=== PATIENT | female | born 1970 | race Caucasian/White ===

== ENCOUNTER → 2016-05-06 | Outpatient (REF) | payer OTHER | END | disposition home or self-care (01) | LOC: M SMT 13:08 | PROVIDERS: ATTEND Nurse Practitioner Women's Health | DX: R30.0 Dysuria (principal) ==

== ENCOUNTER → 2016-05-19 | Outpatient (CLI) | payer OTHER ==
--- NOTE | 2016-05-19 12:59 | REP ---
Urinary tract sonogram: History: Frequency, bladder pain. Comparison: Pelvic sonography May 29, 2014. MRI pelvic study July 06, 2014. Findings: Scanning at the level of the urinary bladder shows no abnormality. Pre void bladder volume is calculated at 484.6 ml. Postvoid bladder residual is seen at 17.6 ml. A normal emptying ureteral jet was observed on the left, not seen on the right. Renal cortical echogenicity pattern is normal bilaterally and contours are smooth. There is no evidence of hydronephrosis, cyst, mass, or calculus in either kidney. The right kidney measures 10.9 x 5.7 x 4.1 cm. There is a 0.7 cm echogenic focus at the lower pole of the right kidney which could be a small calculus. Left renal dimensions are 11.0 x 6.4 x 4.7 cm. Impression: Question small calculus lower pole right kidney, otherwise normal urinary tract sonography. Signed by Florentino Montoya MD 05/19/2016 12:51 P
== END ==
LOC: M SMT 10:51
PROVIDERS: ATTEND Nurse Practitioner Women's Health
DX: R35.0 Frequency of micturition (principal); R39.89 Other symptoms and signs involving the genitourinary system; M54.5 Low back pain; N20.0 Calculus of kidney

== ENCOUNTER → 2016-05-30 | Outpatient (CLI) | payer OTHER ==
--- NOTE | 2016-05-30 18:36 | REP ---
CT abdomen pelvis without IV or oral contrast: Renal stone protocol: History: Kidney stones. Comparison study is from 04/20/2008. CT findings: Preliminary visitor services specialist radiograph shows an unremarkable bowel gas pattern. There are clips in the right upper quadrant. The lung bases are clear. There is no evidence of pleural effusion. The liver and the spleen are normal in size homogeneous in texture. No adrenal lesion is seen on either side. Pancreas is unremarkable. There is an accessory splenule. There is no evidence of intrarenal calculus. No hydronephrosis is seen on either side. There is a large calcification along the right pelvic sidewall which is unchanged to 2008 and is felt to be a phlebolith within gonadal vein. No ureteral calculus is seen. No bladder calculus is observed. No uterine or ovarian abnormality is seen. A normal appendix is visible in the right lower quadrant. No bony destructive lesion is seen. Impression: No urinary tract calculus seen. Post cholecystectomy. No other significant intraabdominal abnormality. Signed by Florentino Montoya MD 05/31/2016 12:25 P
== END ==
LOC: M RAD 16:35
PROVIDERS: ATTEND Nurse Practitioner Women's Health
DX: R10.9 Unspecified abdominal pain (principal); N20.0 Calculus of kidney; Z90.49 Acquired absence of other specified parts of digestive tract

== ENCOUNTER → 2016-08-06 | Outpatient (REF) | payer OTHER | LOC: M LAB REF 17:10 | PROVIDERS: ATTEND Advanced Practice Midwife | DX: Z01.419 Encounter for gynecological examination (general) (routine) without abnormal findings (principal); Z11.51 Encounter for screening for human papillomavirus (HPV) ==

== ENCOUNTER → 2016-08-15 | Outpatient (CLI) | payer OTHER ==
--- NOTE | 2016-08-15 11:39 | REP ---
Clinical: Pelvic pain. Technique: Transabdominal pelvic ultrasound followed by transvaginal examination for better evaluation of the endometrium and adnexa. Findings: Bladder is normal and measures 10.7 x 6.2 x 9.3 cm. Heterogeneous anteverted uterus measures 6.0 x 3.1 x 3.9 cm. The endometrial complex measures 2.1 mm thickness. Few scattered calcifications are appreciated within the myometrium and likely nonspecific and insignificant. No focal endometrial or uterine abnormality is otherwise appreciated. The bilateral ovaries are not visualized. No free fluid or pelvic mass lesions noted. Impression: Heterogeneous anteverted uterus without focal abnormality. Ovaries not visualized. No pelvic fluid or adnexal mass lesion. Signed by Luciano Wiseman MD 08/15/2016 11:30 A
--- NOTE | 2016-08-15 11:44 | REPMRS ---
Patient History The patient states she had a clinical breast exam in July 2016. Patient is postmenopausal. Family history of prostate cancer in father at age 50 or over. Benign radio exam breast specimen of the right breast, June 30, 2012. Benign stereotatic loc for ea lesion of the right breast, June 30, 2012. Digital Mammo Screening Bilat: August 15, 2016 - Exam #: [id number] Bilateral CC and MLO view(s) were taken. Technologist: Jacque Koo, Technologist Prior study comparison: June 16, 2012, digital bilateral screening mammo, performed at [facility]. FINDINGS: There are scattered fibroglandular densities. There is a needle biopsy marker clip in the right breast. The microcalcifications have been removed. There has been no change in the appearance of the mammogram from the prior studies. There is a mild amount of scattered fibroglandular density which is fairly symmetric. There is no interval development of dominant mass, architectural distortion, or clustered microcalcification suggestive of malignancy. ASSESSMENT: BI-RADS/ACR category 1 mammogram. Negative. Recommendation Routine screening mammogram in 1 year (for women over age 40). This mammogram was interpreted with the aid of an FDA-approved computer-aided dectection system. Electronically Signed By: Yair Montoya MD 08/15/16 1710
== END ==
LOC: M RAD 10:51
PROVIDERS: ATTEND Advanced Practice Midwife
DX: Z12.31 Encounter for screening mammogram for malignant neoplasm of breast (principal); R10.2 Pelvic and perineal pain; N85.4 Malposition of uterus; Z78.0 Asymptomatic menopausal state
CPT/HCPCS: 76830; 76856; G0202

== ENCOUNTER → 2017-10-22 | Outpatient (REF) | payer OTHER ==
[2017-10-30 00:07] LABS: VANILLYLMANDELIC ACID,URINE 1.8 mg/L (Undefined); VANILLYLMANDELIC ACID,URINE 24 3.2 mg/24 hr (0.0-7.5)
== END ==
LOC: M LAB REF 16:37
DX: G93.40 Encephalopathy, unspecified (principal)
CPT/HCPCS: 84585

== ENCOUNTER → 2018-01-21 | Outpatient (CLI) | payer OTHER ==
[~2018-01-21] MED LIST: PROHANCE 279.3MG/ML 15ML VIAL (A9576) As Ordered
== END ==
LOC: M RAD 13:37
DX: R19.7 Diarrhea, unspecified (principal)
CPT/HCPCS: A9576

== ENCOUNTER 2018-01-28 17:38 | Emergency (ER) | payer OTHER ==
[2018-01-28 19:48] LABS: BASO % 0.4 % (0.0-1.0); EOS # 0.3 10^3/uL (0.0-0.50); EOS % 4.8 % (0.0-3.0); HEMATOCRIT 38.9 % (36.0-47.0); HEMOGLOBIN 12.7 g/dl (12.0-15.5); IMMATURE GRANULOCYTE % 0.1 % (0-3.0); LYMPH # 2.2 10^3/uL (1.5-4.5); LYMPH % 31.6 % (24.0-44.0); MEAN CORPUSCULAR HEMOGLOBIN 28.1 pg (27.0-33.0); MEAN CORPUSCULAR HGB CONC 32.6 g/dl (32.0-36.5); MEAN CORPUSCULAR VOLUME 86.1 fl (80.0-96.0); MONO # 0.6 10^3/uL (0.0-0.8); MONO % 8.5 % (0.0-5.0); NEUTROPHILS # 3.8 10^3/uL (1.8-7.7); NEUTROPHILS % 54.6 % (36.0-66.0); PLATELET COUNT, AUTOMATED 287 10^3/uL (150-450); RED BLOOD COUNT 4.52 10^6/uL (4.00-5.40)
[2018-01-28 19:50] LABS: ABG BASE EXCESS 1.3 (-2.0-2.0); ABG HCO3 25.5 MEQ/L (22.0-26.0); ABG O2 SATURATION 98.7 % (95.0-99.0); ABG PARTIAL PRESSURE CO2 38.6 mmHg (35.0-45.0); ABG PARTIAL PRESSURE O2 126.3 mmHg (75.0-100.0); ABG STANDARD HCO3 25.7 MEQ/L (22.0-26.0); ABG TOTAL CO2 26.6 MEQ/L (22.0-29.0); ABG pH (ARTERIAL) 7.437 UNITS (7.350-7.450)
[2018-01-28 20:22] LABS: ALBUMIN 3.7 GM/DL (3.2-5.2); ALBUMIN/GLOBULIN RATIO 1.23 (1.00-1.93); ALKALINE PHOSPHATASE 81 U/L (45-117); ALT/SGPT 21 U/L (12-78); ANION GAP 4 MEQ/L (8-16); AST/SGOT 19 U/L (7-37); BILIRUBIN,DIRECT < 0.1 MG/DL (0.0-0.2); BILIRUBIN,TOTAL 0.5 MG/DL (0.2-1.0); BLOOD UREA NITROGEN 15 MG/DL (7-18); CALCIUM LEVEL 9.2 MG/DL (8.5-10.1); CARBON DIOXIDE LEVEL 30 MEQ/L (21-32); CHLORIDE LEVEL 107 MEQ/L (98-107); CREATININE FOR GFR 0.68 MG/DL (0.55-1.30); ETHYL ALCOHOL (ETHANOL) < 0.003 % (0.000-0.010); FREE THYROXINE INDEX 1.8 % (1.3-4.8); GLOMERULAR FILTRATION RATE > 60.0 (>58); GLUCOSE, FASTING 124 MG/DL (70-100); MAGNESIUM LEVEL 2.2 MG/DL (1.8-2.4); POTASSIUM SERUM 3.8 MEQ/L (3.5-5.1); SODIUM LEVEL 141 MEQ/L (136-145); T UPTAKE 28 % (30-39); THYROXINE (T4) 6.6 UG/DL (4.5-12.0); TOTAL PROTEIN 6.7 GM/DL (6.4-8.2)
[2018-01-28 20:28] LABS: BEDSIDE GLUCOSE 99 MG/DL (70-105)
== END 2018-01-28 23:02 | disposition home or self-care (01) ==
LOC: M ED 17:38
DX: R25.1 Tremor, unspecified (principal); E11.649 Type 2 diabetes mellitus with hypoglycemia without coma; K21.9 Gastro-esophageal reflux disease without esophagitis; Z98.84 Bariatric surgery status; K91.1 Postgastric surgery syndromes; F41.9 Anxiety disorder, unspecified; Z98.890 Other specified postprocedural states; R53.1 Weakness; F98.5 Adult onset fluency disorder; Z88.0 Allergy status to penicillin; Z88.1 Allergy status to other antibiotic agents; Z88.2 Allergy status to sulfonamides; Z79.899 Other long term (current) drug therapy
CPT/HCPCS: 70450

== ENCOUNTER 2018-02-13 14:15 | Day surgery (SDC) | payer OTHER ==
[2018-02-13 14:46] LABS: BASO % 0.4 % (0.0-1.0); EOS # 0.2 10^3/uL (0.0-0.50); EOS % 2.4 % (0.0-3.0); HEMATOCRIT 37.1 % (36.0-47.0); HEMOGLOBIN 12.5 g/dl (12.0-15.5); IMMATURE GRANULOCYTE % 0.1 % (0-3.0); LYMPH # 2.4 10^3/uL (1.5-4.5); MEAN CORPUSCULAR HEMOGLOBIN 28.5 pg (27.0-33.0); MEAN CORPUSCULAR HGB CONC 33.7 g/dl (32.0-36.5); MEAN CORPUSCULAR VOLUME 84.7 fl (80.0-96.0); MONO # 0.5 10^3/uL (0.0-0.8); MONO % 7.2 % (0.0-5.0); NEUTROPHILS # 3.6 10^3/uL (1.8-7.7); NEUTROPHILS % 53.9 % (36.0-66.0); PLATELET COUNT, AUTOMATED 275 10^3/uL (150-450); RED BLOOD COUNT 4.38 10^6/uL (4.00-5.40); RED CELL DISTRIBUTION WIDTH 11.9 % (11.5-14.5); WHITE BLOOD COUNT 6.8 10^3/uL (4.0-10.0)
[2018-02-13 15:03] LABS: ANION GAP 9 MEQ/L (8-16); BLOOD UREA NITROGEN 19 MG/DL (7-18); CALCIUM LEVEL 8.7 MG/DL (8.5-10.1); CARBON DIOXIDE LEVEL 23 MEQ/L (21-32); CHLORIDE LEVEL 110 MEQ/L (98-107); CREATININE FOR GFR 0.81 MG/DL (0.55-1.30); GLOMERULAR FILTRATION RATE > 60.0 (>58); GLUCOSE, FASTING 90 MG/DL (70-100); POTASSIUM SERUM 3.6 MEQ/L (3.5-5.1); SODIUM LEVEL 142 MEQ/L (136-145)
[2018-02-13 15:23] LABS: KETONE, URINE AUTO RFX NEGATIVE (NEGATIVE); RBC, URINE AUTO RFX 1 /HPF (0-3); SPECIFIC GRAVITY UR AUTO RFX 1.012 (1.002-1.035); SQUAM EPITHELIAL CELL UR AURFX 0 /HPF (0-6); WBC, URINE AUTO RFX 6 /HPF (0-3)
[2018-02-13 15:24] LABS: LEUKOCYTE ESTERASE UR AUTO RFX TRACE (NEGATIVE); NITRITE, URINE AUTO RFX POSITIVE (NEGATIVE)
[2018-02-13] MEDS ORDERED: ISOVUE-370 76% 100ML VIAL (Q9967) As Ordered (15:29)
[2018-02-13 15:42] LABS: ALBUMIN 3.4 GM/DL (3.2-5.2); ALBUMIN/GLOBULIN RATIO 0.94 (1.00-1.93); ALKALINE PHOSPHATASE 80 U/L (45-117); ALT/SGPT 21 U/L (12-78); AST/SGOT 22 U/L (7-37); BILIRUBIN,DIRECT 0.1 MG/DL (0.0-0.2); BILIRUBIN,TOTAL 0.5 MG/DL (0.2-1.0); LIPASE 158 U/L (73-393)
[2018-02-13] MEDS: NS 1,000 ML IV (15:47)
[2018-02-13] MEDS: ONDANSETRON 4MG/2ML VIAL (J2405) IV ×2 (15:47→21:56)
[2018-02-13] MEDS: HYDROMORPHONE HCL 0.5 MG/ 0.5 ML SYRINGE (J1170 PER 1) IV ×2 (15:47→16:49)
[2018-02-13] MEDS: METOCLOPRAMIDE INJ 10MG/2ML VIAL (J2765) IV ×2 (16:29→22:00)
[2018-02-13] MEDS ORDERED: ONDANSETRON 4MG/2ML VIAL (J2405) IV (18:15)
[2018-02-13] MEDS ORDERED: MORPHINE 4 MG/ML 1ML VIAL/SYRINGE (J2270) IV (18:15)
[2018-02-13] MEDS ORDERED: KETOROLAC 30 MG/ML VIAL (J1885) IV (18:15)
[2018-02-13] MEDS ORDERED: MIDAZOLAM INJ 2 MG/2 ML VIAL (J2250) As Ordered (18:53)
[2018-02-13] MEDS ORDERED: dexameTHASONE 4 MG/ML 1ML VIAL (J1100) As Ordered (18:53)
[2018-02-13] MEDS ORDERED: fentaNYL 250 MCG/5 ML INJECTION (J3010) As Ordered (18:53)
[2018-02-13] MEDS ORDERED: PROPOFOL 200 MG/20 ML VIAL As Ordered (18:53)
[2018-02-13] MEDS ORDERED: LIDOCAINE 2% INJ 100 MG/5 ML SDV (FOR ANES.) As Ordered (18:53)
[2018-02-13] MEDS ORDERED: ROCURONIUM BROMIDE 50 MG/5 ML VIAL As Ordered (18:53)
[2018-02-13] MEDS: metroNIDAZOLE 500 MG in APPROPRIATE DILUENT 1 EA IV (19:31)
[2018-02-13] MEDS ORDERED: ePHEDrine SULFATE 25 MG/5 ML(5MG/ML) SYRINGE As Ordered (19:34)
[2018-02-13] MEDS ORDERED: SUCCINYLCHOLINE 100 MG/5 ML SYRINGE (J0330) As Ordered (19:37)
[2018-02-13] MEDS ORDERED: ONDANSETRON 4MG/2ML VIAL (J2405) As Ordered (19:52)
[2018-02-13] MEDS ORDERED: KETOROLAC 60 MG/2 ML VIAL (J1885) As Ordered (19:52)
[2018-02-13] MEDS ORDERED: NEOSTIGMINE 10 MG/10 ML VIAL (J2710) As Ordered ×2 (19:53)
[2018-02-13] MEDS ORDERED: GLYCOPYRROLATE INJ 0.2 MG/ML 2 ML VIAL As Ordered ×2 (19:53)
[2018-02-13] MEDS: cefTRIAXone SOD 2 GM in D5W MINI-BAG PLUS 50 ML IV (19:58)
[2018-02-13] MEDS: BUPIVACAINE HCL 0.25% 30 ML VIAL As Ordered (21:36)
[2018-02-13] MEDS: LR 1,000 ML IV (22:15)
[2018-02-13] MEDS ORDERED: MORPHINE 10 MG/ML 1ML VIAL (J2270) IV (22:15)
[2018-02-13] MEDS ORDERED: METOCLOPRAMIDE INJ 10MG/2ML VIAL (J2765) IV (22:15)
[2018-02-13] MEDS ORDERED: fentaNYL 100 MCG/2 ML INJECTION (J3010) IV (22:15)
[2018-02-13] MEDS ORDERED: PROMETHAZINE INJ 25 MG/ML VIAL (J2550) As Ordered (22:28)
[2018-02-13] MEDS: PROMETHAZINE INJ 25 MG/ML VIAL (J2550) IV (22:31)
[2018-02-13] MEDS: D5W/LR 1,000 ML IV (23:54)
[2018-02-14 07:39] LABS: BASO % 0.1 % (0.0-1.0); HEMATOCRIT 35.4 % (36.0-47.0); HEMOGLOBIN 11.9 g/dl (12.0-15.5); IMMATURE GRANULOCYTE % 0.3 % (0-3.0); LYMPH # 1.3 10^3/uL (1.5-4.5); LYMPH % 14.7 % (24.0-44.0); MEAN CORPUSCULAR HEMOGLOBIN 28.5 pg (27.0-33.0); MEAN CORPUSCULAR HGB CONC 33.6 g/dl (32.0-36.5); MEAN CORPUSCULAR VOLUME 84.7 fl (80.0-96.0); MONO # 0.7 10^3/uL (0.0-0.8); MONO % 8.1 % (0.0-5.0); NEUTROPHILS % 76.8 % (36.0-66.0); PLATELET COUNT, AUTOMATED 240 10^3/uL (150-450); RED BLOOD COUNT 4.18 10^6/uL (4.00-5.40); RED CELL DISTRIBUTION WIDTH 12.1 % (11.5-14.5); WHITE BLOOD COUNT 9.1 10^3/uL (4.0-10.0)
[2018-02-14] MEDS: D5W/LR 1,000 ML IV (08:03)
[2018-02-14] MEDS: ACETAMINOPHEN TAB 650MG DOSE (2X325MG) PO ×2 (08:03→15:40)
[2018-02-14 08:06] LABS: ANION GAP 6 MEQ/L (8-16); BLOOD UREA NITROGEN 11 MG/DL (7-18); CALCIUM LEVEL 8.2 MG/DL (8.5-10.1); CARBON DIOXIDE LEVEL 26 MEQ/L (21-32); CHLORIDE LEVEL 111 MEQ/L (98-107); CREATININE FOR GFR 0.75 MG/DL (0.55-1.30); GLOMERULAR FILTRATION RATE > 60.0 (>58); GLUCOSE, FASTING 135 MG/DL (70-100); POTASSIUM SERUM 3.8 MEQ/L (3.5-5.1); SODIUM LEVEL 143 MEQ/L (136-145)
[2018-02-15] MEDS: NORCO, ANEXSIA 5/325MG TABLET (HYDROcodone/ACETAMINOPHEN) PO (00:17)
== END 2018-02-15 10:55 | disposition home or self-care (01) ==
LOC: M SDC 02-15 10:55 → M ED 14:15 → M SDC 18:14 → M PED 23:00
DX: K38.8 Other specified diseases of appendix (principal); N73.6 Female pelvic peritoneal adhesions (postinfective); Z88.0 Allergy status to penicillin; Z88.2 Allergy status to sulfonamides; Z79.899 Other long term (current) drug therapy
CPT/HCPCS: 44970

== ENCOUNTER → 2018-06-29 | Outpatient (CLI) | payer OTHER ==
[~2018-06-29] MED LIST changes: +GABA-1171 PO; -PROHANCE 279.3MG/ML 15ML VIAL (A9576) As Ordered; +PROZ40CA PO; +REQU2TAB3 PO
[2018-06-29 12:37] LABS: ACETONE/KETONE 1.47 MG/DL (<2.81); ALBUMIN 3.6 GM/DL (3.2-5.2); ALT/SGPT 28 U/L (12-78); BILIRUBIN,TOTAL 0.8 MG/DL (0.2-1.0); BLOOD UREA NITROGEN 18 MG/DL (7-18); CALCIUM LEVEL 9.2 MG/DL (8.5-10.1); CARBON DIOXIDE LEVEL 29 MEQ/L (21-32); CHLORIDE LEVEL 108 MEQ/L (98-107); CREATININE FOR GFR 0.68 MG/DL (0.55-1.30); FREE T4 0.96 NG/DL (0.76-1.46); GLOMERULAR FILTRATION RATE > 60.0 (>58); GLUCOSE, FASTING 93 MG/DL (70-100); POTASSIUM SERUM 3.8 MEQ/L (3.5-5.1); SODIUM LEVEL 141 MEQ/L (136-145); TOTAL PROTEIN 6.4 GM/DL (6.4-8.2)
[2018-06-29 12:46] LABS: CORTISOL AM 11.2 UG/DL (4.3-22.4)
== END ==
LOC: M LRY 08:43
PROVIDERS: ATTEND Internal Medicine Gastroenterology
DX: E04.1 Nontoxic single thyroid nodule (principal); Z86.39 Personal history of other endocrine, nutritional and metabolic disease
CPT/HCPCS: 36415; 80053; 82010; 82533; 83519; 83525; 83527; 84206; 84305; 84439; 84681; 86337; G0480

== ENCOUNTER 2018-07-26 16:54 | Observation (INO) | payer OTHER ==
[~2018-07-26] VITALS: Ht 165.1 cm; Wt 71.8 kg
[2018-07-26] MEDS ORDERED: FLUO20CA19 PO (17:48)
[2018-07-26] MEDS ORDERED: NEUR300C PO (17:48)
[2018-07-26] MEDS ORDERED: ROPI1TAB PO ×3 (17:48→22:28)
[2018-07-26] MEDS ORDERED: NS 1,000 ML IV ONE ×2 (18:00)
[2018-07-26] MEDS ORDERED: ONDANSETRON 4MG/2ML VIAL (J2405) IV ONE (18:00)
[2018-07-26 18:18] LABS: BASO % 0.2 % (0.0-1.0); EOS # 0.1 10^3/uL (0.0-0.50); EOS % 1.5 % (0.0-3.0); HEMATOCRIT 41.6 % (36.0-47.0); LYMPH # 0.8 10^3/uL (1.5-4.5); LYMPH % 9.1 % (24.0-44.0); MEAN CORPUSCULAR HEMOGLOBIN 28.5 pg (27.0-33.0); MEAN CORPUSCULAR HGB CONC 33.7 g/dl (32.0-36.5); MEAN CORPUSCULAR VOLUME 84.6 fl (80.0-96.0); MONO # 0.5 10^3/uL (0.0-0.8); MONO % 5.7 % (0.0-5.0); NEUTROPHILS # 7.1 10^3/uL (1.8-7.7); NEUTROPHILS % 83.3 % (36.0-66.0); PLATELET COUNT, AUTOMATED 251 10^3/uL (150-450); RED BLOOD COUNT 4.92 10^6/uL (4.00-5.40); WHITE BLOOD COUNT 8.5 10^3/uL (4.0-10.0)
[2018-07-26 18:47] LABS: ALBUMIN 3.8 GM/DL (3.2-5.2); ALT/SGPT 29 U/L (12-78); BILIRUBIN,DIRECT 0.2 MG/DL (0.0-0.2); BILIRUBIN,TOTAL 0.9 MG/DL (0.2-1.0); BLOOD UREA NITROGEN 23 MG/DL (7-18); CALCIUM LEVEL 8.5 MG/DL (8.5-10.1); CARBON DIOXIDE LEVEL 21 MEQ/L (21-32); CHLORIDE LEVEL 112 MEQ/L (98-107); CREATININE FOR GFR 0.81 MG/DL (0.55-1.30); GLOMERULAR FILTRATION RATE > 60.0 (>58); GLUCOSE, FASTING 112 MG/DL (70-100); LIPASE 156 U/L (73-393); POTASSIUM SERUM 4.2 MEQ/L (3.5-5.1); SODIUM LEVEL 140 MEQ/L (136-145); TOTAL PROTEIN 7.1 GM/DL (6.4-8.2)
[2018-07-26] MEDS ORDERED: ISOVUE-370 76% 100ML VIAL (Q9967) As Ordered ONE (18:56)
--- NOTE | 2018-07-26 21:15 | REPVR ---
EXAM: CT Abdomen and Pelvis With Contrast EXAM DATE/TIME: 07/26/2018 7:23 PM CLINICAL HISTORY: 47 years old, female; Abdominal pain; Generalized; Additional info: Abdominla pain TECHNIQUE: Imaging protocol: Axial computed tomography images of the abdomen and pelvis with intravenous contrast. Coronal and sagittal reformatted images were created and reviewed. Radiation optimization: All CT scans at this facility use at least one of these dose optimization techniques: automated exposure control; mA and/or kV adjustment per patient size (includes targeted exams where dose is matched to clinical indication); or iterative reconstruction. Contrast material: ISOVUE 370; Contrast volume: 100 ml; Contrast route: IV; COMPARISON: CT ABD/PEL W/IV CONTRAST ONLY 02/13/2018 3:28 PM FINDINGS: Lungs: Left basilar atelectatic change. Mediastinum: Moderate sized hiatal hernia, stable compared to the prior study. ABDOMEN: Liver: Normal. No mass. Gallbladder and bile ducts: Surgical clips are identified within the gallbladder fossa, compatible with cholecystectomy. Pancreas: Normal. No ductal dilation. Spleen: A splenule is visualized. No splenomegaly. Adrenals: No mass. Kidneys and ureters: Unremarkable as visualized. No hydronephrosis. Stomach and bowel: Dilated small bowel loops are identified with air fluid levels, concerning for at least partial obstruction. Distal small bowel is normal in caliber. Air-fluid levels are identified within the large bowel. There is dilatation of small bowel which tapers at the level of the superior mesenteric vessels. SMA syndrome is considered. Appendix: The appendix is surgically absent. Surgical clips are identified adjacent to the cecum. PELVIS: Bladder: Unremarkable as visualized. Reproductive: Unremarkable as visualized. ABDOMEN and PELVIS: Intraperitoneal space: No free air. No significant fluid collection. Bones/joints: No acute fracture. Soft tissues: Unremarkable. Vasculature: See Stomach And Bowel Finding. There is no aneurysm or dissection of the aorta. Lymph nodes: No enlarged lymph nodes. IMPRESSION: 1. Dilated small bowel loops are identified with air fluid levels, concerning for at least partial obstruction. 2. There is dilatation of small bowel which tapers at the level of the superior mesenteric vessels. SMA syndrome is considered. 3. Additional findings described above. Electronically signed by: Kong Carpenter On 07/26/2018 21:15:29 PM
[2018-07-26] MEDS ORDERED: PROMETHAZINE INJ 25 MG/ML VIAL (J2550) IV ONE (22:15)
[2018-07-26] MEDS ORDERED: FLUO1TAB3 PO (22:28)
[2018-07-26] MEDS ORDERED: rOPINIRole 1MG TAB PO PRN (23:00)
--- NOTE | 2018-07-26 23:07 | HPEPDOC ---
General Date of Admission July 26, 2018 at 16:55 Chief Complaint The patient is a 47-year-old female admitted with a reason for visit of ILEUS. Source: Patient Exam Limitations: No limitations Timing/Duration: Day(s) (1) Severity: Moderate Associated Symptoms: Nausea History of Present Illness Pt is a 47 yo female with PMH of acute appendicitis s/p appendectomy, GERD, anxiety, depression, restless legs, and episodes of hypoglycemia presented to the ER due to nausea, dry-heaving, and 8 episodes of watery diarrhea starting from this morning. Pt reported diffuse constant dull abdominal pain that's 6- 09/29. Reported light brown color watery diarrhea without any mucous, melena, or hematochezia. It is noted that patient was in contact with her granddaughter that was reported to have a stomach bug. Prior abd surgeries include appendectomy, cholecystectomy, and maxmie fundoplication. Denies any fever, chills, chest pain, SOB, or any other symptoms as mentioned above. Home Medications Scheduled Fluoxetine HCl (Fluoxetine HCl) 20 Mg Tablet, 20 MG PO QHS, (Reported) Gabapentin (Neurontin) 300 Mg Capsule, 300 MG PO QHS, (Reported) Ropinirole HCl (Ropinirole HCl) 1 Mg Tablet, 1 MG PO QHS, (Reported) Scheduled PRN Ropinirole HCl (Ropinirole HCl) 1 Mg Tablet, 1 MG PO DAILY PRN for RESTLESSNESS, (Reported) Allergies Coded Allergies: Penicillins (Verified Allergy, Intermediate, sob, 07/26/18) mouth swelling Sulfa (Sulfonamide Antibiotics) (Verified Allergy, Intermediate, sob, 07/26/18) mouth swelling levofloxacin (Verified Allergy, Intermediate, sob, 07/26/18) mouth swelling Past Medical History Medical History Anxiety and depression GERD-walker esophagus Neck and back DDD TMJ Jaw Restless legs Pt reported lower esophageal sphincter dysfunction Pt reported cholelithiasis Acute appendicitis Hypoglycemia episodes with glucose of 40; being worked up as outpatient Sleep apnea on CPAP Surgical History Appendidectomy Cholecystectomy Maxime fundoplication June 2017 Right breast biopsy Ovarian cyst Left knee meniscus Family History Significant Family History: Other (fahter has prostate cancer) Social History * Smoker: Denies Recent Travel/Sick Contacts: Reports: Recent sick contacts (granddaughter reported to have stomach bug) A-FIB/CHADSVASC A-FIB History Current/History of A-Fib/PAF?: No Review of Systems Constitutional: Reports: Fatigue; Denies: Chills, Fever Pulmonary: Denies: Dyspnea, Cough, Pleuritic Chest Pain Cardiovascular: Denies: Chest Pain, Palpitations Gastrointestinal: Reports: Nausea, Abdominal Pain (diffuse), Diarrhea; Denies: Vomiting, Constipation, Melena, Hematochezia Genitourinary: Denies: Dysuria, Frequency, Incontinence, Hematuria, Retention Physical Examination General Exam: Positive: Alert, Cooperative, Mild Distress Eye Exam: Positive: Conjunctiva & lids normal; Negative: Sclera icteric, Ptosis ENT Exam: Positive: Atraumatic Neck Exam: Positive: Supple Chest Exam: Positive: Clear to auscultation, Normal air movement; Negative: Rales, Rhonchi, Wheezing Heart Exam: Positive: Rate Normal, Normal S1, Normal S2; Negative: Murmurs Abdomen Exam: Positive: BS Hypoactive, Soft, Other (no increased tenderness upon palpitation) Extremity Exam: Positive: Normal pulses; Negative: Cyanosis Skin Exam: Positive: Other skin issue (laproscopic procedure scars well healed on abdomen) Neuro Exam: Positive: Normal Speech Psych Exam: Positive: Mental status NL, Memory Intact, Oriented x 3 Vital Signs Vital Signs Date Time Temp Pulse Resp B/P (MAP) Pulse Ox O2 Delivery O2 Flow Rate FiO2 07/26/18 22:42 66 18 94/55 (68) 98 Room Air 07/26/18 19:13 98.1 Laboratory Data Labs 24H Laboratory Tests 2 07/26/18 17:55: Urine Color YELLOW, Urine Appearance CLEAR, Urine pH 5.0, Urine Specific [place] 1.029, Urine Protein NEGATIVE, Urine Glucose (UA) NEGATIVE, Urine Ketones NEGATIVE, Urine Blood NEGATIVE, Urine Nitrite NEGATIVE, Urine Bilirubin NEGAT LILIANA, Urine Urobilinogen 0.2, Urine Leukocyte Esterase NEGATIVE, Urine WBC (Auto) 0, Urine RBC (Auto) 1, Urine Hyaline Casts (Auto) 0, Urine Bacteria (Auto) NEGATIVE, Urine Squamous Epithelial Cells 0, Urine Mucus (Auto) SMALL, Urine Sperm (Auto) 07/26/18 18:09: Immature Granulocyte % (Auto) 0.2, White Blood Count 8.5, Red Blood Count 4.92, Hemoglobin 14.0, Hematocrit 41.6, Mean Corpuscular Volume 84.6, Mean Corpuscular Hemoglobin 28.5, Mean Corpuscular Hemoglobin Concent 33.7, Red Cell Distribution Width 12.2, Platelet Count 251, Neutrophils (%) (Auto) 83.3H, Lymphocytes (%) (Auto) 9.1L, Monocytes (%) (Auto) 5.7H, Eosinophils (%) (Auto) 1.5, Basophils (%) (Auto) 0.2, Neutrophils # (Auto) 7.1, Lymphocytes # (Auto) 0.8L, Monocytes # (Auto) 0.5, Eosinophils # (Auto) 0.1, Basophils # (Auto) 0.0, Nucleated Red Blood Cells % (auto) 0.0, Anion Gap 7L, Glomerular Filtration Rate > 60.0, Lactic Acid Level 1.7, Calcium Level 8.5, Aspartate Amino Transf (AST/SGOT) 30, Alanine Aminotransferase (ALT/SGPT) 29, Alkaline Phosphatase 94, Total Bilirubin 0.9, Direct Bilirubin 0.2, Total Protein 7.1, Albumin 3.8, Albumin/Globulin Ratio 1.15, Lipase 156 CBC/BMP Laboratory Tests 07/26/18 18:09 Red Blood Count 4.92, Mean Corpuscular Volume 84.6, Mean Corpuscular Hemoglobin 28.5, Mean Corpuscular Hemoglobin Concent 33.7, Red Cell Distribution Width 12.2, Neutrophils (%) (Auto) 83.3 H, Lymphocytes (%) (Auto) 9.1 L, Monocytes (%) (Auto) 5.7 H, Eosinophils (%) (Auto) 1.5, Basophils (%) (Auto) 0.2, Neutrophils # (Auto) 7.1, Lymphocytes # (Auto) 0.8 L, Monocytes # (Auto) 0.5, Eosinophils # (Auto) 0.1, Basophils # (Auto) 0.0 Microbiology Microbiology 07/26/18 Gastrointestinal Tract Panel (PCR), Received Pending Problems (1) Ileus Status: Acute Problem Text: hypoactive bowel sounds on physical exam. Dry-heaving without emesis. 8 watery diarrhea starting this morning; denies any mucous/melena/hematochezia. CT abdom/pelvis cannot rule out partial small bowel obstruction or SMA syndrome. No increased tenderness upon palpation; reported 6- 7/10 constant diffuse abd pain. Discussion made from ER to surgery team, and surgery team considers pt having ileus. Prior abd surgery including maxime fundolication in june 2017, appendectomy, and cholecystectomy. Zofran, IV LR, and tylenol. Advance diet as tolerated. (2) MAZIN (obstructive sleep apnea) Status: Chronic Problem Text: Uses CPAP at home. Pt does not have own CPAP at this time; advise pt to bring CPAP from home. Cont pulse ox at this time with ox therapy ordered. (3) Hypoglycemia Status: Chronic Problem Text: episodes of hypoglycemia currently being worked up as outpatient. Pt reported blood glucose down to 40s prior outpatient. FSBS Q8H with hypoglycemia protocol. Cont to monitor the pt (4) Depression Status: Chronic Response to Treatment: Controlled Problem Text: PMH of depression and anxiety. Cont home med Prozac and cont to monitor the pt. (5) Restless leg syndrome Status: Chronic Problem Text: Cont home med Ropinorole. Cont to monitor the pt Plan / VTE VTE Prophylaxis Ordered?: Yes (SCD, TEDS, and SC heparin) Plan IVF: Initiate Diagnostics: Check Labs, Repeat Labs in AM Anticipated Discharge: Home RYAN WILLS DO July 26, 2018 23:07
[2018-07-26] MEDS ORDERED: ONDANSETRON 4MG/2ML VIAL (J2405) IV PRN (23:15)
[2018-07-26] MEDS ORDERED: DEXTROSE 50% 50 ML SYRINGE IV PRN (23:15)
[2018-07-26] MEDS ORDERED: GLUCAGON FOR INJ 1 MG VIAL (J1610) SC PRN (23:15)
[2018-07-26] MEDS ORDERED: GLUCOSE 4 GM CHEW TABLET PO PRN (23:15)
[2018-07-26] MEDS: LR 1,000 ML IV SCH (23:50)
[2018-07-27] VITALS: BP 115/62
[2018-07-27] MEDS: FLUoxetine 20 MG CAP PO SCH ×2 (00:18→20:43)
[2018-07-27] MEDS: GABAPENTIN 300 MG CAP PO SCH ×2 (00:18→20:43)
[2018-07-27] MEDS: rOPINIRole 1MG TAB PO SCH ×2 (00:18→20:43)
[2018-07-27 04:00] VITALS: BP 112/64
[2018-07-27] MEDS: HEPARIN SOD (PORCINE) 5000 UNITS/ML VIAL SC SCH ×3 (05:53→22:00)
[2018-07-27 07:15] LABS: HEMATOCRIT 36.6 % (36.0-47.0); MEAN CORPUSCULAR HEMOGLOBIN 28.3 pg (27.0-33.0); MEAN CORPUSCULAR HGB CONC 32.5 g/dl (32.0-36.5); MEAN CORPUSCULAR VOLUME 86.9 fl (80.0-96.0); PLATELET COUNT, AUTOMATED 202 10^3/uL (150-450); RED BLOOD COUNT 4.21 10^6/uL (4.00-5.40); WHITE BLOOD COUNT 4.2 10^3/uL (4.0-10.0)
[2018-07-27 07:24] LABS: HEMOGLOBIN 11.9 g/dl (12.0-15.5)
[2018-07-27 07:41] LABS: BLOOD UREA NITROGEN 11 MG/DL (7-18); CARBON DIOXIDE LEVEL 27 MEQ/L (21-32); CHLORIDE LEVEL 115 MEQ/L (98-107); CREATININE FOR GFR 0.73 MG/DL (0.55-1.30); GLOMERULAR FILTRATION RATE > 60.0 (>58); GLUCOSE, FASTING 85 MG/DL (70-100); POTASSIUM SERUM 3.6 MEQ/L (3.5-5.1); SODIUM LEVEL 144 MEQ/L (136-145)
[2018-07-27 08:00] VITALS: BP 95/51
[2018-07-27] MEDS: LR 1,000 ML IV SCH ×2 (09:07→17:27)
[2018-07-27] MEDS: ACETAMINOPHEN TAB 650MG DOSE (2X325MG) PO PRN ×2 (09:08→18:07)
[2018-07-27 16:00] VITALS: BP 108/55
[2018-07-27 20:00] VITALS: BP 102/51
[2018-07-28] VITALS: BP 110/50
[2018-07-28] MEDS: LR 1,000 ML IV SCH (02:33)
[2018-07-28 04:00] VITALS: BP 111/55
[2018-07-28] MEDS: HEPARIN SOD (PORCINE) 5000 UNITS/ML VIAL SC SCH (05:54)
[2018-07-28 07:07] LABS: HEMATOCRIT 36.4 % (36.0-47.0); MEAN CORPUSCULAR HEMOGLOBIN 28.1 pg (27.0-33.0); MEAN CORPUSCULAR VOLUME 85.2 fl (80.0-96.0); PLATELET COUNT, AUTOMATED 205 10^3/uL (150-450); RED BLOOD COUNT 4.27 10^6/uL (4.00-5.40); WHITE BLOOD COUNT 3.6 10^3/uL (4.0-10.0)
[2018-07-28 07:26] LABS: BLOOD UREA NITROGEN 9 MG/DL (7-18); CALCIUM LEVEL 8.7 MG/DL (8.5-10.1); CARBON DIOXIDE LEVEL 27 MEQ/L (21-32); CHLORIDE LEVEL 113 MEQ/L (98-107); CREATININE FOR GFR 0.68 MG/DL (0.55-1.30); GLOMERULAR FILTRATION RATE > 60.0 (>58); GLUCOSE, FASTING 84 MG/DL (70-100); POTASSIUM SERUM 3.8 MEQ/L (3.5-5.1); SODIUM LEVEL 145 MEQ/L (136-145)
[2018-07-28 08:00] VITALS: BP 111/56
[2018-07-28 09:00] VITALS: O2SAT 99
--- NOTE | 2018-07-28 12:04 | DS.PDOC ---
Discharge Summary General Date of Admission 09/25/18 Date of Discharge 07/28/18 Attending Physician: RAJAN ENNIS MD Discharge Summary PROCEDURES PERFORMED DURING STAY: [None]. ADMITTING DIAGNOSES: 1. [Abdominal pain, diarrhea]. DISCHARGE DIAGNOSES: 1. [Vital gastroenteritis]. COMPLICATIONS/CHIEF COMPLAINT: ILEUS. HISTORY OF PRESENT ILLNESS: [47 years old white female past medical history and no significant disease was admitted with chief complaint of abdominal pain with diarrhea since last 2-3 days before presentation. Patient has not been to any travel halfway R any sick contacts ]. HOSPITAL COURSE: [Patient was admitted with diagnosis of possible gastroenteritis. Stool cultures showed noro virus positive. Patient was treated with IV fluids and symptomatic care and she is responded to's conservative management very well. Patient tolerated breakfast. No more abd ominal pain, no nausea, vomiting and 1 episode of diarrhea and is ready to be discharged home and follow with PCP in one week]. DISCHARGE MEDICATIONS: Please see below. ALLERGIES: Please see below. PHYSICAL EXAMINATION ON DISCHARGE: VITAL SIGNS: Please see below. GENERAL: [Within normal limits] HEENT:. PERRLA NECK: Supple, no JVD, JVD. No lymphadenopathy CARDIOVASCULAR EXAMINATION: [S1, S2, regular] RESPIRATORY EXAMINATION:, No no wheezing, dyspnea, clear to A&P ABDOMINAL EXAMINATION:. Benign EXTREMITIES:. No clubbing, cyanosis, edema SKIN: Within normal limits NEUROLOGICAL EXAMINATION:. No sensory or motor deficit PSYCHIATRIC EXAMINATION: LABORATORY DATA: Please see below. IMAGING: [None] PROGNOSIS: [Good] ACTIVITY: [As tolerated]. DIET: [As tolerated] DISCHARGE PLAN: [[place] home] DISPOSITION: . Home DISCHARGE INSTRUCTIONS: 1. [See above]. ITEMS TO FOLLOWUP ON ON OUTPATIENT: 1. [See above]. DISCHARGE CONDITION: [Stable]. TIME SPENT ON DISCHARGE: Greater than [35] minutes. Vital Signs/I&Os Vital Signs Date Time Temp Pulse Resp B/P (MAP) Pulse Ox O2 Delivery O2 Flow Rate FiO2 07/28/18 09:00 99 Room Air 07/28/18 08:00 97.7 63 16 111/56 (74) I&O- Last 24 Hours up to 6 AM 07/28/18 05:59 Intake Total 3420 ml Output Total 2100 ml Balance 1320 ml Laboratory Data Labs 24H Laboratory Tests 2 07/27/18 13:36: Bedside Glucose (Misc Panel) 119H 07/27/18 18:09: Bedside Glucose (Misc Panel) 73 07/27/18 20:50: Bedside Glucose (Misc Panel) 112H 07/28/18 06:36: Nucleated Red Blood Cells % (auto) 0.0, Anion Gap 5L, Glomerular Filtration Rate > 60.0, Blood Urea Nitrogen 9, Creatinine 0.68, Sodium Level 145, Potassium Level 3.8, Chloride Level 113H, Carbon Dioxide Level 27, Calcium Level 8.7 CBC/BMP Laboratory Tests 07/28/18 06:36 Red Blood Count 4.27, Mean Corpuscular Volume 85.2, Mean Corpuscular Hemoglobin 28.1, Mean Corpuscular Hemoglobin Concent 33.0, Red Cell Distribution Width 12.3, Calcium Level 8.7 FSBS Laboratory Tests Test 07/27/18 13:36 07/27/18 18:09 07/27/18 20:50 Range/Units Bedside Glucose (Misc Panel) 119 73 112 70-105 MG/DL Microbiology Microbiology 07/26/18 Gastrointestinal Tract Panel (PCR) - Final, Complete Norovirus Discharge Medications Scheduled Fluoxetine HCl (Fluoxetine HCl) 20 Mg Tablet, 20 MG PO QHS, (Reported) Gabapentin (Neurontin) 300 Mg Capsule, 300 MG PO QHS, (Reported) Ropinirole HCl (Ropinirole HCl) 1 Mg Tablet, 1 MG PO QHS, (Reported) Scheduled PRN Ropinirole HCl (Ropinirole HCl) 1 Mg Tablet, 1 MG PO DAILY PRN for RESTLESSNESS, (Reported) Allergies Coded Allergies: Penicillins (Verified Allergy, Intermediate, sob, 07/26/18) mouth swelling Sulfa (Sulfonamide Antibiotics) (Verified Allergy, Intermediate, sob, 07/26/18) mouth swelling levofloxacin (Verified Allergy, Intermediate, sob, 07/26/18) mouth swelling RAJAN ENNIS MD July 28, 2018 12:04
--- NOTE | 2018-07-28 12:30 | IPNPDOC ---
Subjective Date Seen The patient was seen on 07/27/18. Subjective Chief Complaint/HPI Patient is still has a several episodes of diarrhea General: Denies: ROS Unobtainable, Chills, Night Sweats, Fatigue, Malaise, Normal Appetite, Other Symptoms Constitutional: Denies: Chills, Fever, Malaise, Night Sweats, Weakness, Fatigue, Weight Loss, Lethargy, Other Eyes: Denies: Pain, Vision change, Conjunctivae inflammation, Eyelid inflammation, Redness, Other ENT: Denies: Head Aches, Ear Pain, Dysphagia, Sinus Congestion, Post Nasal Drip, Sore Throat, Epistaxis, Other Symptoms Skin: Denies: Rash, Lesions, Jaundice, Bruising, Itching, Dry, Breakdown, Nail Changes, Other Pulmonary: Denies: Dyspnea, Cough, Pleuritic Chest Pain, Other Symptoms Cardiovascular: Denies: Chest Pain, Palpitations, Orthopnea, Paroxysmal Noc. Dyspnea, Edema, Lt Headedness, Other Symptoms Gastrointestinal: Reports: Diarrhea Genitourinary: Denies: Dysuria, Frequency, Incontinence, Hematuria, Retention, Other Symptoms Hematologic: Denies: Bruising, Bleeding Excessively, Petecchia, Purpura, Enlarged Lymph Nodes, Other Hematologic Endocrine: Denies: Polydipsia, Polyphagia, Polyuria, Heat Intolerance, Cold Intolerance, Other Endocrine Sx Musculoskeletal: Denies: Neck Pain, Back Pain, Shoulder Pain, Arm Pain, Hand Pain, Leg Pain, Foot Pain, Joint Pain, Muscle Pain, Spasms, Other Symptoms Neurological: Denies: Weakness, Numbness, Incoordination, Change in speech, Confusion, Seizures, Other Symptoms Psych: Denies: Mood Normal, Anxiety, Depression, Memory Issues, Thoughts of Self Harm, Anger, Thoughts of Harming Other, Other Psych Objective Physical Examination General Exam: Positive: Alert, Cooperative, Mild Distress Eye Exam: Positive: Conjunctiva & lids normal; Negative: Sclera icteric, Ptosis ENT Exam: Positive: Atraumatic Neck Exam: Positive: Supple Chest Exam: Positive: Clear to auscultation, Normal air movement; Negative: Rales, Rhonchi, Wheezing Heart Exam: Positive: Rate Normal, Normal S1, Normal S2; Negative: Murmurs Abdomen Exam: Positive: BS Hypoactive, Soft, Other (no increased tenderness upon palpitation) Extremity Exam: Positive: Normal pulses; Negative: Cyanosis Skin Exam: Positive: Other skin issue (laproscopic procedure scars well healed on abdomen) Neuro Exam: Positive: Normal Speech Psych Exam: Positive: Mental status NL, Memory Intact, Oriented x 3 A-FIB/CHADSVASC A-FIB History Current/History of A-Fib/PAF?: No Assessment /Plan Problems (1) Viral gastroenteritis due to [place] virus Status: Acute Response to Treatment: Stable Problem Text: Continue IV fluids Continue symptomatic care Monitor electrolytes Correct electrolytes as needed (2) Ileus Status: Acute Problem Text: hypoactive bowel sounds on physical exam. Dry-heaving without emesis. 8 watery diarrhea starting this morning; denies any mucous/ melena/hematochezia. CT abdom/pelvis cannot rule out partial small bowel obstruction or SMA syndrome. No increased tenderness upon palpation; reported 6- 7/10 constant diffuse abd pain. Discussion made from ER to surgery team, and surgery team considers pt having ileus. Prior abd surgery including jose carlos fundolication in june 2017, appendectomy, and cholecystectomy. Zofran, IV LR, and tylenol. Advance diet as tolerated. (3) MAZIN (obstructive sleep apnea) Status: Chronic Problem Text: Uses CPAP at home. Pt does not have own CPAP at this time; advise pt to bring CPAP from home. Cont pulse ox at this time with ox therapy ordered. (4) Hypoglycemia Status: Chronic Problem Text: episodes of hypoglycemia currently being worked up as outpatient. Pt reported blood glucose down to 40s prior outpatient. FSBS Q8H with hypoglycemia protocol. Cont to monitor the pt (5) Depression Status: Chronic Response to Treatment: Controlled Problem Text: PMH of depression and anxiety. Cont home med Prozac and cont to monitor the pt. (6) Restless leg syndrome Status: Chronic Problem Text: Cont home med Ropinorole. Cont to monitor the pt Plan/VTE VTE Prophylaxis Ordered?: Yes (SCD, TEDS, and SC heparin) Plan IVF: Initiate Diagnostics: Check Labs, Repeat Labs in AM Anticipated Discharge: Home VS, I&O, 24H, Fishbone Vital Signs/I&O Vital Signs Date Time Temp Pulse Resp B/P (MAP) Pulse Ox O2 Delivery O2 Flow Rate FiO2 07/28/18 09:00 99 Room Air 07/28/18 08:00 97.7 63 16 111/56 (74) I&O- Last 24 Hours up to 6 AM 07/28/18 06:00 Intake Total 2760 ml Output Total 2100 ml Balance 660 ml Laboratory Data 24H LABS Laboratory Tests 2 07/27/18 13:36: Bedside Glucose (Misc Panel) 119H 07/27/18 18:09: Bedside Glucose (Misc Panel) 73 07/27/18 20:50: Bedside Glucose (Misc Panel) 112H 07/28/18 06:36: Nucleated Red Blood Cells % (auto) 0.0, Anion Gap 5L, Glomerular Filtration Rate > 60.0, Blood Urea Nitrogen 9, Creatinine 0.68, Sodium Level 145, Potassium Level 3.8, Chloride Level 113H, Carbon Dioxide Level 27, Calcium Level 8.7 CBC/BMP Laboratory Tests 07/28/18 06:36 Red Blood Count 4.27, Mean Corpuscular Volume 85.2, Mean Corpuscular Hemoglobin 28.1, Mean Corpuscular Hemoglobin Concent 33.0, Red Cell Distribution Width 12.3, Calcium Level 8.7 Microbiology Microbiology 07/26/18 Gastrointestinal Tract Panel (PCR) - Final, Complete Norovirus RAJAN ENNIS MD July 28, 2018 12:30
== END 2018-07-28 12:15 | disposition home or self-care (01) ==
LOC: M ED 16:54 → M ED INP 16:55 → M PED 23:38
PROVIDERS: ADMIT Internal Medicine; ATTEND Internal Medicine
DX: A08.11 Acute gastroenteropathy due to Norwalk agent (principal); K21.9 Gastro-esophageal reflux disease without esophagitis; F41.9 Anxiety disorder, unspecified; F32.9 Major depressive disorder, single episode, unspecified; G25.81 Restless legs syndrome; G47.33 Obstructive sleep apnea (adult) (pediatric); E16.2 Hypoglycemia, unspecified; Z79.899 Other long term (current) drug therapy; Z88.0 Allergy status to penicillin; Z88.2 Allergy status to sulfonamides
CPT/HCPCS: 36415; 74177; 80048; 80076; 81001; 83605; 83690; 85025; 85027; 87507; 93041; 96361; 96374; 96375; 99285; J2405; Q9967

== ENCOUNTER 2019-03-24 14:32 | Emergency (ER) | payer BC, OTHER, SELFPAY ==
[~2019-03-24] VITALS: Ht 165.1 cm; Wt 80.8 kg
[~2019-03-24 14:32] MED LIST changes: +FLUO1TAB3 PO; +FLUO20CA19 PO; +NEUR300C PO; +ROPI1TAB PO
[2019-03-24] MEDS ORDERED: ONDANSETRON 4 MG ORAL DISINTEGRATING TAB (Q0162 PER 1MG) PO ONE (18:30)
[2019-03-24 19:04] LABS: BASO % 0.7 % (0.0-1.0); EOS # 0.2 10^3/uL (0.0-0.5); EOS % 2.8 % (0.0-3.0); HEMATOCRIT 40.6 % (36.0-47.0); HEMOGLOBIN 12.9 g/dl (12.0-15.5); LYMPH # 1.4 10^3/uL (1.5-5.0); LYMPH % 25.8 % (24.0-44.0); MEAN CORPUSCULAR HEMOGLOBIN 27.6 pg (27.0-33.0); MEAN CORPUSCULAR HGB CONC 31.8 g/dl (32.0-36.5); MEAN CORPUSCULAR VOLUME 86.9 fl (80.0-96.0); MONO # 0.4 10^3/uL (0.0-0.8); NEUTROPHILS # 3.4 10^3/uL (1.5-8.5); NEUTROPHILS % 62.4 % (36.0-66.0); PLATELET COUNT, AUTOMATED 276 10^3/uL (150-450); RED BLOOD COUNT 4.67 10^6/uL (4.00-5.40); WHITE BLOOD COUNT 5.4 10^3/uL (4.0-10.0)
[2019-03-24 19:17] LABS: APPEARANCE, URINE CLEAR (CLEAR); BACTERIA, URINE AUTO 1+ (NEGATIVE); BILIRUBIN, URINE AUTO NEGATIVE (NEGATIVE); BLOOD, URINE BLOOD NEGATIVE (NEGATIVE); COLOR, URINE YELLOW (YELLOW); GLUCOSE, URINE (UA) AUTO NEGATIVE (NEGATIVE); KETONE, URINE AUTO NEGATIVE (NEGATIVE); LEUKOCYTE ESTERASE, URINE AUTO TRACE (NEGATIVE); MUCUS, URINE SMALL (NEGATIVE); NITRITE, URINE AUTO NEGATIVE (NEGATIVE); PROTEIN, URINE AUTO NEGATIVE (NEGATIVE); RBC, URINE AUTO 4 /HPF (0-3); SPECIFIC GRAVITY URINE AUTO 1.025 (1.002-1.035); SQUAMOUS EPITHELIAL CELL UR AU 0 /HPF (0-6); UROBILINOGEN, URINE AUTO 0.2 mg/dL (0.0-2.0); WBC, URINE AUTO 12 /HPF (0-3)
[2019-03-24 19:27] LABS: ERYTHROCYTE SEDIMENTATION RATE 35 mm/hr (0-30)
[2019-03-24 19:28] LABS: ALBUMIN 3.8 GM/DL (3.2-5.2); ALT/SGPT 57 U/L (12-78); BILIRUBIN,DIRECT 0.2 MG/DL (0.0-0.2); BILIRUBIN,TOTAL 0.6 MG/DL (0.2-1.0); BLOOD UREA NITROGEN 17 MG/DL (7-18); C REACTIVE PROTEIN QUANTITATIV 1.21 MG/DL (0.00-0.30); CALCIUM LEVEL 9.3 MG/DL (8.5-10.1); CARBON DIOXIDE LEVEL 28 MEQ/L (21-32); CHLORIDE LEVEL 110 MEQ/L (98-107); CPK CREATINE PHOSPHOKINASE 42 U/L (26-192); CREATININE FOR GFR 0.79 MG/DL (0.55-1.30); GLOMERULAR FILTRATION RATE > 60.0 (>51); GLUCOSE, FASTING 84 MG/DL (70-100); POTASSIUM SERUM 4.1 MEQ/L (3.5-5.1); RHEUMATOID FACTOR QUANT < 10.0 IU/ML (<15.0); SODIUM LEVEL 143 MEQ/L (136-145); TOTAL PROTEIN 7.6 GM/DL (6.4-8.2)
[2019-03-24] MEDS ORDERED: ONDA4TAB6 PO (21:11)
[2019-03-24] MEDS ORDERED: INDO50CA91 PO (21:11)
[2019-03-24] MEDS ORDERED: INDOMETHACIN 25 MG CAP PO ONE (21:15)
[2019-03-24 21:18] VITALS: BP 127/75
[2019-03-27 00:06] LABS: ANTINUCLEAR ANTIBODIES DIRECT Negative (Negative); Lyme Disease IgG/IgM Antibodie <0.91 ISR (0.00-0.90); Lyme Disease IgM Ab Quantitati <0.80 index (0.00-0.79)
== END 2019-03-24 21:36 | disposition home or self-care (01) ==
LOC: M ED 14:32
DX: J02.9 Acute pharyngitis, unspecified (principal); R11.0 Nausea; M25.50 Pain in unspecified joint; Z87.820 Personal history of traumatic brain injury; G47.30 Sleep apnea, unspecified; K21.9 Gastro-esophageal reflux disease without esophagitis; Z87.440 Personal history of urinary (tract) infections; E11.9 Type 2 diabetes mellitus without complications; M51.26 Other intervertebral disc displacement, lumbar region; M50.20 Other cervical disc displacement, unspecified cervical region; F41.9 Anxiety disorder, unspecified; F32.9 Major depressive disorder, single episode, unspecified; Z79.899 Other long term (current) drug therapy; Z88.0 Allergy status to penicillin; Z88.2 Allergy status to sulfonamides; Z88.8 Allergy status to other drugs, medicaments and biological substances
CPT/HCPCS: 80048; 80076; 81001; 82550; 85025; 85652; 86038; 86140; 86431; 86617; 87088; 87186; 87880; 99284; Q0162

== ENCOUNTER → 2019-09-03 | Outpatient (REF) | payer BC ==
[~2019-09-03] MED LIST changes: -FLUO20CA19 PO; +FLUO20CA22 PO; +INDO50CA91 PO; +ONDA4TAB6 PO; -ROPI1TAB PO; +ROPI1TAB3 PO
== END ==
LOC: M WUC 17:50
PROVIDERS: ATTEND Nurse Practitioner Family
DX: N39.0 Urinary tract infection, site not specified (principal)

== ENCOUNTER → 2019-10-20 | Outpatient (CLI) | payer BC | LOC: M LABSMTC 10:00 | PROVIDERS: ATTEND Internal Medicine Hepatology | DX: Z20.828 Contact with and (suspected) exposure to other viral communicable diseases (principal) | CPT/HCPCS: C9803; U0002 ==

== ENCOUNTER → 2020-10-30 | Outpatient (REF) | payer BC | LOC: M SFHCWAGY 19:32 | PROVIDERS: ATTEND Nurse Practitioner Women's Health | DX: Z12.4 Encounter for screening for malignant neoplasm of cervix (principal) ==

== ENCOUNTER → 2020-10-30 | Outpatient (CLI) | payer BC ==
--- NOTE | 2020-10-30 14:13 | REPMRS ---
Patient History The patient states she had a clinical breast exam in 2020. Family history of prostate cancer at age 50 or over in father. Benign radio exam breast specimen of the right breast, June 30, 2012. Benign stereotatic loc for ea lesion of the right breast, June 30, 2012. No breast complaints today Patient signed the MRS sheet No covid vaccine Priors on PACS Patient Identification Verified Digital Woman Screen Mammo: October 30, 2020 - Exam #: [id number] Bilateral CC and MLO view(s) were taken. Technologist: Jacque Koo, Technologist Prior study comparison: August 15, 2016, bilateral digital mammo screening bilat, performed at [facility]. June 16, 2012, digital bilateral screening mammo, performed at [facility]. FINDINGS: The breast tissue is almost entirely fat. The Volpara volumetric breast density category is: A. There is a needle biopsy marker clip noted in the right breast. There has been no change in the appearance of the mammogram from the prior studies. There is no interval development of dominant mass, architectural distortion, or grouped microcalcification typical of malignancy. 3-D tomosynthesis shows no additional findings. Assessment: BI-RADS/ACR category 2 mammogram. Benign Findings. Recommendation Routine screening mammogram of both breasts in 1 year (for women over age 40). This patient's [facility] Lifetime Breast Cancer RIsk is estimated at 7.7 %. This mammogram was interpreted with the aid of an FDA-approved computer-aided dectection system. Electronically Signed By: Yair Montoya MD 10/30/20 0826
== END ==
LOC: M WHC 11:04
PROVIDERS: ATTEND Nurse Practitioner Women's Health
DX: Z12.31 Encounter for screening mammogram for malignant neoplasm of breast (principal)

== ENCOUNTER → 2022-07-04 | Outpatient (CLI) | payer BC | LOC: M WHC 10:49 | PROVIDERS: ATTEND Obstetrics & Gynecology | DX: N95.0 Postmenopausal bleeding (principal) ==

== ENCOUNTER → 2022-10-21 | Outpatient (CLI) | payer BC ==
[~2022-10-21] MED LIST changes: -ROPI1TAB3 PO; +ROPI1TAB73 PO
[2022-10-21 11:58] LABS: ESTRADIOL 43.1 PG/ML; FOLLICLE STIMULATING HORMONE 5.3 mIU/ML; LUTEINIZING HORMONE 1.1 mIU/ML
[2022-10-21 11:59] LABS: PROGESTERONE 0.21 NG/ML
[2022-10-22 10:09] LABS: TESTOSTERONE FREE (DIRECT) 3.1 pg/mL (0.0-4.2)
== END ==
LOC: M LAB 11:05
PROVIDERS: ATTEND Obstetrics & Gynecology
DX: N95.1 Menopausal and female climacteric states (principal); F52.0 Hypoactive sexual desire disorder; R53.83 Other fatigue

== ENCOUNTER → 2023-08-13 | Outpatient (CLI) | payer BC ==
[~2023-08-13] MED LIST changes: +E-Z-GAS II EFFERVESCENT PACKET (SODIUM BICARB./CITRIC ACID/SIMETHICONE) As Ordered ONE; +E-Z-HD 98% w/w 340GM SUSP BTL As Ordered ONE; +E-Z-PAQUE 96% w/w SUSP 176GM BTL As Ordered ONE
== END ==
LOC: M RAD 07:29
PROVIDERS: ATTEND Surgery
DX: R13.10 Dysphagia, unspecified (principal)

== ENCOUNTER → 2025-03-09 | Outpatient (CLI) | payer BC ==
[~2025-03-09] MED LIST changes: -E-Z-GAS II EFFERVESCENT PACKET (SODIUM BICARB./CITRIC ACID/SIMETHICONE) As Ordered ONE; -E-Z-HD 98% w/w 340GM SUSP BTL As Ordered ONE; -E-Z-PAQUE 96% w/w SUSP 176GM BTL As Ordered ONE; +FLUO-365 PO; -FLUO20CA22 PO; +ONDA-282 PO; -ONDA4TAB6 PO
[2025-03-09 15:26] LABS: PROGESTERONE < 0.21 NG/ML
[2025-03-09 15:27] LABS: ESTRADIOL 33.2 PG/ML
[2025-03-10 07:07] LABS: LUTEINIZING HORMONE 0.3 mIU/ML
== END ==
LOC: M LAB 14:13
PROVIDERS: ATTEND Obstetrics & Gynecology
DX: N95.1 Menopausal and female climacteric states (principal); F52.0 Hypoactive sexual desire disorder; E34.9 Endocrine disorder, unspecified